=== PATIENT | female | born 1960 | race Caucasian/White ===

== ENCOUNTER 2018-07-13 00:54 | Emergency (ER) | payer OTHER ==
[2018-07-13 01:00] VITALS: BP 123/74; PULSE 104; TEMP 97.8; BMI 25.7
--- NOTE | 2018-07-13 01:00 | PDOC ---
History of Present Illness - General Chief Complaint: Nausea/Vomiting Stated Complaint: NAUSEA/VOMITING Time Seen by Provider: 07/13/18 00:56 - History of Present Illness Initial Comments: 07/13/18 01:10 This 57-year-old woman with a history of HLD/diverticular disease presents with a few hour history of nausea/vomiting. Patient states that she last ate at approximately 4 PM (crab salad) and did well until approximately 10:30 PM. At that time, she began to have nausea with subsequent vomiting (3 episodes). Emesis was yellowish liquid; denies blood/coffee grounds. After this, she felt weak and experienced rapid heartbeat (palpitations have subsequently resolved). She denies shortness of breath or chest pain. She has not had loose stools although she has mild abdominal cramping and feels she will have a bowel movement soon. Patient's granddaughter recently had acute illness with vomiting /diarrhea ; the patient had contact with granddaughter several days ago. Patient has no history of bowel obstruction or previous abdominal surgery. The patient has a history of diverticulitis and had been taking a medication for " inflammation" until several months ago, prescribed by Dr Feliz Abbott. She states that she is due for follow-up with "soon". Denies any other gastrointestinal issues Past History - Past Medical History Allergies/Adverse Reactions: Allergies Allergy/AdvReac Type Severity Reaction Status Date / Time No Known Allergies Allergy Unverified 07/13/18 00:55 Home Medications: Ambulatory Orders Aspirin [Aspirin EC] 81 mg PO DAILY 07/13/18 Fenofibrate Nanocrystallized [Fenofibrate] 160 mg PO DAILY 07/13/18 Ondansetron [Zofran Odt -] 4 mg SL TID PRN #12 od.tablet 07/13/18 Simvastatin 5 mg PO DAILY 07/13/18 Review of Systems - Review of Systems Able to Perform ROS?: Yes Comments:: 12 point review of systems is negative except for what is noted in the history of present illness *Physical Exam - Physical Exam Comments: GENERAL: Adult female, alert and oriented 3, in no acute distress HEAD: Normal with no signs of trauma. EYES: PERRLA, EOMI, sclera anicteric, conjunctiva clear. ENT: Ears normal, nares patent, oropharynx clear without exudates. Dry mucous membranes. NECK: Normal range of motion, supple without lymphadenopathy, JVD, or masses. LUNGS: Breath sounds equal, clear to auscultation bilaterally. No wheezes, and no crackles. HEART:Regular rate and rhythm, normal S1 and S2 without murmur, rub or gallop. ABDOMEN:.hypoactive bowel sounds No guarding,tenderness or rebound.No masses Mild distention. EXTREMITIES: Normal range of motion, no edema. No clubbing or cyanosis. No erythema, or tenderness. NEUROLOGICAL: Cranial nerves II through XII grossly intact. Normal speech. No focal neurological deficits. MUSCULOSKELETAL: Back non-tender to palpation, no CVA tenderness SKIN: Warm, Dry, normal turgor, no rashes or lesions noted. ED Treatment Course - LABORATORY CBC & Chemistry Diagram: 07/13/18 01:15 07/13/18 01:15 Medical Decision Making - Medical Decision Making This 57-year-old woman with a history of HLD/diverticulitis presents with nausea and vomiting for the last few hours. Exam notable for dry mucous membranes, and mildly distended, soft abdomen with hypoactive bowel sounds. There is no significant abdominal tenderness or masses on exam CBC/chemistry profile/lipase was evaluated. Patient received 2 L of normal saline IV as well as 4 mg Zofran IV. Laboratory evaluation notable for mild hypokalemia (3.1) and BUN of 23 with creatinine of 0.4 consistent with prerenal azotemia. Lipase was normal. CBC was essentially normal. Patient felt significantly better after IV hydration and IV Zofran. She received 20 mEq Twila Dur orally; she continued to feel comfortable without any recurrence of nausea. Patient is discharged with instructions to continue oral hydration with clear liquids as tolerated. She should advance to solid foods very cautiously. Zofran ODT 4 mg to be used up to 3 times a day (#12) prescription was sent to her pharmacy. She should return to the emergency room if she has recurrent severe vomiting or develops abdominal pain/fever. Follow-up with her general medical doctor and with her music pastor should be planned for the next week *DC/Admit/Observation/Transfer Diagnosis at time of Disposition: Gastroenteritis - Discharge Dispostion Disposition: HOME Condition at time of disposition: Stable - Prescriptions Prescriptions: Ondansetron [Zofran Odt -] 4 mg SL TID PRN #12 od.tablet PRN Reason: Nausea - Referrals Referrals: Yahaira Akers MD [Primary Care Provider] - Feliz Abbott MD [Staff Physician] - - Patient Instructions Printed Discharge Instructions: Viral Gastroenteritis Additional Instructions: rest; clear liquids Advance diet cautiously Zofran ODT 4 mg up to 3 times a day as needed for nausea Return to ER if you have persistent vomiting or develop severe pain/fever Follow-up with your primary care doctor within the next 5 days Also follow-up with Dr. Abbott within the next 1-2 weeks - Post Discharge Activity
[2018-07-13] MEDS ORDERED: ONDANSETRON 4 MG/2 ML VIAL IVPUSH ONE (01:09)
[2018-07-13] MEDS ORDERED: SODIUM CHLORIDE 1,000 ML IV STA (01:09)
[2018-07-13] MEDS ORDERED: ONDANSETRON 4 MG/2 ML VIAL ONE (01:15)
[2018-07-13 01:51] LABS: BASO % 0.1 % (0-2.0); EOS % 1.7 % (0-4.5); HEMATOCRIT 40.4 % (32.4-45.2); HEMOGLOBIN 14.3 GM/dL (10.7-15.3); LYMPH % 5.7 % (8-40); MCH 34.4 pg (25.7-33.7); MCHC 35.3 g/dl (32.0-36.0); MEAN CELL VOLUME 97.2 fl (80-96); MEAN PLT VOLUME 7.8 fl (7.5-11.1); MONO % 3.8 % (3.8-10.2); NEUT % 88.7 % (42.8-82.8); PLATELET COUNT 293 K/MM3 (134-434); RBC 4.16 M/mm3 (3.60-5.2); WHITE BLOOD COUNT 6.5 K/mm3 (4.0-10.0)
[2018-07-13 02:26] LABS: ALBUMIN 3.9 g/dl (3.4-5.0); ALK PHOS 80 U/L (45-117); ANION GAP 10 MMOL/L (8-16); BILIRUBIN,TOTAL 0.4 mg/dL (0.2-1); BLOOD UREA NITROGEN 23 mg/dL (7-18); CALCIUM 8.6 mg/dL (8.5-10.1); CHLORIDE 104 mmol/L (98-107); CO2 26 mmol/L (21-32); CREATININE 0.4 mg/dL (0.55-1.3); GLUCOSE,RANDOM 121 mg/dL (74-106); LIPASE 303 U/L (73-393); POTASSIUM 3.1 mmol/L (3.5-5.1); SGOT/AST 18 U/L (15-37); SGPT/ALT 21 U/L (13-61); SODIUM 139 mmol/L (136-145); TOT PROT 6.8 g/dl (6.4-8.2)
[2018-07-13] MEDS ORDERED: POTASSIUM CHLORIDE TABS 20 MEQ TABLET.ER (FP) PO ONE ×2 (02:43→02:47)
== END 2018-07-13 03:01 | disposition home or self-care (01) ==
LOC: FER 00:54
PROC: 3E033GC Introduction of Other Therapeutic Substance into Peripheral Vein, Percutaneous Approach (ICD-10-PCS; principal; 2018-07-13)
PROC: 3E0337Z Introduction of Electrolytic and Water Balance Substance into Peripheral Vein, Percutaneous Approach (ICD-10-PCS; 2018-07-13)
DX: K52.9 Noninfective gastroenteritis and colitis, unspecified (principal); E78.5 Hyperlipidemia, unspecified
CPT/HCPCS: 36415; 80053; 83690; 85025; 96361; 96374; 99283-25; J7030

== ENCOUNTER 2020-12-10 20:30 | Inpatient (IN) | payer OTHER ==
[2020-12-10 20:43] VITALS: BMI 23.1
[2020-12-10] MEDS ORDERED: SODIUM CHLORIDE 1,000 ML IV ONE (20:47)
[2020-12-10] MEDS ORDERED: morphine CARPU-JECT 4 MG/1 ML DISP.SYRIN IVPUSH ONE (21:00)
[2020-12-10] MEDS ORDERED: morphine SULFATE 4 MG/ML VIAL ONE (21:01)
[2020-12-10 21:06] LABS: MONO % 6.3 % (3.8-10.2); RBC 3.98 M/mm3 (3.60-5.2)
[2020-12-10 21:08] LABS: BASO % 2.2 % (0-2.0); EOS % 0.1 % (0-4.5); HEMATOCRIT 38.7 % (32.4-45.2); LYMPH % 3.5 % (8-40); MCH 32.7 pg (25.7-33.7); MCHC 33.6 g/dl (32.0-36.0); MEAN CELL VOLUME 97.2 fl (80-96); MEAN PLT VOLUME 7.5 fl (7.5-11.1); NEUT % 87.9 % (42.8-82.8); PLATELET COUNT 303 10^3/uL (134-434); RDW 13.4 % (11.6-15.6); WHITE BLOOD COUNT 13.6 K/mm3 (4.0-10.8)
[2020-12-10 21:16] LABS: ALBUMIN 4.2 g/dl (3.4-5.0); ALK PHOS 70 U/L (45-117); ANION GAP 8 MMOL/L (8-16); BILIRUBIN,TOTAL 0.8 mg/dl (0.2-1); CHLORIDE 102 mmol/L (98-107); CO2 25 mmol/L (21-32); CREATININE 0.4 mg/dl (0.55-1.3); GLUCOSE,RANDOM 146 mg/dl (74-106); SGOT/AST 17 U/L (15-37); SGPT/ALT 16 U/L (13-61); SODIUM 135 mmol/L (136-145)
[2020-12-10 22:05] LABS: LIPASE 77 U/L (73-393)
[2020-12-10] MEDS ORDERED: PIPERACILLIN/TAZOB 4.5 GM 4.5 GM in DEXTROSE 5%-WATER 100 ML IVPB ONE (23:40)
[2020-12-10] MEDS ORDERED: PIPERACILLIN/TAZOBACTAM 4.5 GM VIAL IVPB ONE (23:52)
[2020-12-10] MEDS: SODIUM CHLORIDE 1,000 ML IV SCH (23:53)
[2020-12-11] MEDS ORDERED: morphine SULFATE 4 MG/ML VIAL ONE (00:26)
[2020-12-11] MEDS ORDERED: morphine CARPU-JECT 4 MG/1 ML DISP.SYRIN IVPUSH ONE (00:30)
[2020-12-11] MEDS ORDERED: ONDANSETRON 4 MG/2 ML VIAL IVPUSH PRN (01:12)
[2020-12-11] MEDS: KCL 10 MEQ IVPB 10 MEQ/100 ML INFUS.BAG IVPB SCH ×3 (02:00→05:00)
[2020-12-11] MEDS: DEXTROSE 5%-NORMAL SALINE 1,000 ML IV SCH ×2 (02:07→13:51)
[2020-12-11] MEDS: MORPHINE SULFATE 2 MG/ML VIAL IVPUSH PRN ×4 (02:51→22:13)
[2020-12-11] MEDS: ACETAMINOPHEN 1000 MG/100 ML VIAL (NON FORMULARY) IVPB PRN ×3 (06:14→18:52)
[2020-12-11] MEDS ORDERED: CEFTRIAXONE 1 GM in DEXTROSE 5%-WATER - 50 ML IVPB SCH (13:15)
[2020-12-11] MEDS ORDERED: cefTRIAXone SODIUM 1 GM VIAL ONE (13:48)
[2020-12-11] MEDS ORDERED: DEXTROSE 5%-WATER - 50 ML IVPB ONE ×2 (13:48→18:08)
[2020-12-11] MEDS ORDERED: PT OWN MED DRAWER 7, Y5N ONE ×2 (17:27→21:00)
[2020-12-11] MEDS ORDERED: PIPERACILLIN/TAZOB 3.375 GM 3.375 GM in DEXTROSE 5%-WATER - 50 ML IVPB SCH (18:00)
[2020-12-11] MEDS ORDERED: PIPERACILLIN/TAZOBACTAM 3.375 GM VIAL IVPB ONE (18:08)
[2020-12-11] MEDS: PIPERACILLIN/TAZOB 3.375 GM 3.375 GM in DEXTROSE 5%-WATER - 50 ML IVPB SCH (18:11)
[2020-12-11 18:17] LABS: BLOOD UREA NITROGEN 7.5 mg/dL (7-18); CALCIUM 8.6 mg/dL (8.5-10.1); MAGNESIUM 2.4 mg/dL (1.8-2.4)
[2020-12-11 18:18] LABS: INR 1.03 (0.83-1.09); PROTHROMBIN TIME (PATIENT) 12.4 SEC (9.7-13.0)
[2020-12-11 18:20] LABS: ACTIVATED PTT 26.8 SECONDS (25.2-36.5); CREATININE 0.3 mg/dL (0.55-1.3)
[2020-12-11 18:22] LABS: BILIRUBIN,TOTAL 0.4 mg/dL (0.2-1); TOT PROT 6.1 g/dl (6.4-8.2)
[2020-12-11 18:37] LABS: ALBUMIN 3.2 g/dl (3.4-5.0)
[2020-12-11] MEDS: HEPARIN NA (PORCINE) 5,000 UNITS/ML 1ML VIAL SQ SCH (21:36)
[2020-12-12] MEDS ORDERED: DEXTROSE 5%-WATER - 50 ML IVPB ONE ×3 (02:46→17:03)
[2020-12-12] MEDS ORDERED: PT OWN MED DRAWER 7, Y5N ONE ×5 (02:46→21:31)
[2020-12-12] MEDS ORDERED: PIPERACILLIN/TAZOBACTAM 3.375 GM VIAL IVPB ONE ×3 (02:46→17:03)
[2020-12-12] MEDS: MORPHINE SULFATE 2 MG/ML VIAL IVPUSH PRN ×3 (03:02→22:14)
[2020-12-12] MEDS: PIPERACILLIN/TAZOB 3.375 GM 3.375 GM in DEXTROSE 5%-WATER - 50 ML IVPB SCH ×3 (03:04→17:31)
[2020-12-12] MEDS: DEXTROSE 5%-NORMAL SALINE 1,000 ML IV SCH ×2 (03:05→15:43)
[2020-12-12] MEDS: ACETAMINOPHEN 1000 MG/100 ML VIAL (NON FORMULARY) IVPB PRN ×3 (04:06→17:38)
[2020-12-12] MEDS: SODIUM CHLORIDE 1,000 ML IV SCH (05:33)
[2020-12-12] MEDS: PANTOPRAZOLE SODIUM 40 MG VIAL IVPUSH SCH (09:28)
[2020-12-12] MEDS: NICOTINE 14 MG/24 HOURS TOPICAL PATCH TD SCH ×2 (09:28→10:27)
[2020-12-12] MEDS: HEPARIN NA (PORCINE) 5,000 UNITS/ML 1ML VIAL SQ SCH ×2 (09:28→22:11)
[2020-12-12 09:54] LABS: BASO % 0.2 % (0-2.0); EOS % 1.1 % (0-4.5); HEMATOCRIT 35.2 % (32.4-45.2); HEMOGLOBIN 11.7 GM/dL (10.7-15.3); LYMPH % 13.1 % (8-40); MCH 32.6 pg (25.7-33.7); MCHC 33.1 g/dl (32.0-36.0); MEAN CELL VOLUME 98.4 fl (80-96); MEAN PLT VOLUME 7.8 fl (7.5-11.1); MONO % 9.5 % (3.8-10.2); NEUT % 76.1 % (42.8-82.8); PLATELET COUNT 270 10^3/uL (134-434); RBC 3.58 M/mm3 (3.60-5.2); RDW 14.4 % (11.6-15.6); WHITE BLOOD COUNT 5.4 K/mm3 (4.0-10.0)
[2020-12-12] MEDS ORDERED: PANTOPRAZOLE SODIUM 40 MG in SODIUM CHLORIDE 100 ML IVPB SCH (10:00)
[2020-12-12 10:17] LABS: BLOOD UREA NITROGEN 8.5 mg/dL (7-18); CALCIUM 8.4 mg/dL (8.5-10.1); MAGNESIUM 2.4 mg/dL (1.8-2.4)
[2020-12-12 10:20] LABS: CREATININE 0.3 mg/dL (0.55-1.3)
[2020-12-12 10:22] LABS: BILIRUBIN,TOTAL 0.4 mg/dL (0.2-1); TOT PROT 5.8 g/dl (6.4-8.2)
[2020-12-12 10:46] LABS: INR 0.97 (0.83-1.09); PROTHROMBIN TIME (PATIENT) 11.9 SEC (9.7-13.0)
[2020-12-13] MEDS ORDERED: PT OWN MED DRAWER 7, Y5N ONE ×3 (03:04→21:14)
[2020-12-13] MEDS ORDERED: DEXTROSE 5%-WATER - 50 ML IVPB ONE ×4 (03:04→17:06)
[2020-12-13] MEDS ORDERED: PIPERACILLIN/TAZOBACTAM 3.375 GM VIAL IVPB ONE ×4 (03:04→17:06)
[2020-12-13] MEDS: PIPERACILLIN/TAZOB 3.375 GM 3.375 GM in DEXTROSE 5%-WATER - 50 ML IVPB SCH ×3 (03:20→17:44)
[2020-12-13] MEDS: DEXTROSE 5%-NORMAL SALINE 1,000 ML IV SCH (03:53)
[2020-12-13] MEDS: MORPHINE SULFATE 2 MG/ML VIAL IVPUSH PRN ×2 (05:49→21:33)
[2020-12-13 09:24] LABS: BASO % 0.3 % (0-2.0); EOS % 1.6 % (0-4.5); HEMATOCRIT 33.3 % (32.4-45.2); LYMPH % 13.7 % (8-40); MCH 32.5 pg (25.7-33.7); MCHC 33.1 g/dl (32.0-36.0); MEAN CELL VOLUME 98.2 fl (80-96); MEAN PLT VOLUME 7.8 fl (7.5-11.1); MONO % 9.1 % (3.8-10.2); NEUT % 75.3 % (42.8-82.8); PLATELET COUNT 274 10^3/uL (134-434); RBC 3.39 M/mm3 (3.60-5.2); RDW 14.2 % (11.6-15.6); WHITE BLOOD COUNT 4.6 K/mm3 (4.0-10.0)
[2020-12-13] MEDS: HEPARIN NA (PORCINE) 5,000 UNITS/ML 1ML VIAL SQ SCH ×2 (09:27→21:16)
[2020-12-13] MEDS: PANTOPRAZOLE SODIUM 40 MG VIAL IVPUSH SCH (09:28)
[2020-12-13] MEDS: NICOTINE 14 MG/24 HOURS TOPICAL PATCH TD SCH (09:28)
[2020-12-13 10:00] LABS: ALBUMIN 2.7 g/dl (3.4-5.0); CALCIUM 8.4 mg/dL (8.5-10.1)
[2020-12-13 10:01] LABS: BLOOD UREA NITROGEN 5.2 mg/dL (7-18)
[2020-12-13 10:04] LABS: MAGNESIUM 2.1 mg/dL (1.8-2.4)
[2020-12-13 10:05] LABS: BILIRUBIN,TOTAL 0.5 mg/dL (0.2-1)
[2020-12-13 10:07] LABS: CREATININE 0.3 mg/dL (0.55-1.3); TOT PROT 5.4 g/dl (6.4-8.2)
[2020-12-13] MEDS: ACETAMINOPHEN 1000 MG/100 ML VIAL (NON FORMULARY) IVPB PRN (10:28)
[2020-12-13] MEDS: D5-1/2NS+20 MEQ KCL - 20 MEQ/1,000 ML INFUS.BAG IV SCH (13:58)
[2020-12-14] MEDS ORDERED: PIPERACILLIN/TAZOBACTAM 3.375 GM VIAL IVPB ONE ×4 (01:19→16:32)
[2020-12-14] MEDS ORDERED: DEXTROSE 5%-WATER - 50 ML IVPB ONE ×4 (01:19→16:33)
[2020-12-14] MEDS ORDERED: PT OWN MED DRAWER 7, Y5N ONE ×2 (01:23→07:56)
[2020-12-14] MEDS: PIPERACILLIN/TAZOB 3.375 GM 3.375 GM in DEXTROSE 5%-WATER - 50 ML IVPB SCH ×3 (01:28→18:15)
[2020-12-14] MEDS: D5-1/2NS+20 MEQ KCL - 20 MEQ/1,000 ML INFUS.BAG IV SCH ×2 (02:28→14:28)
[2020-12-14 09:06] LABS: BASO % 0.3 % (0-2.0); EOS % 1.3 % (0-4.5); HEMATOCRIT 33.3 % (32.4-45.2); HEMOGLOBIN 11.2 GM/dL (10.7-15.3); LYMPH % 12.9 % (8-40); MCH 32.6 pg (25.7-33.7); MCHC 33.7 g/dl (32.0-36.0); MEAN CELL VOLUME 96.6 fl (80-96); MEAN PLT VOLUME 7.2 fl (7.5-11.1); MONO % 12.8 % (3.8-10.2); NEUT % 72.7 % (42.8-82.8); PLATELET COUNT 277 10^3/uL (134-434); RBC 3.45 M/mm3 (3.60-5.2); RDW 13.8 % (11.6-15.6); WHITE BLOOD COUNT 5.2 K/mm3 (4.0-10.0)
[2020-12-14] MEDS: HEPARIN NA (PORCINE) 5,000 UNITS/ML 1ML VIAL SQ SCH ×2 (09:43→21:40)
[2020-12-14] MEDS: PANTOPRAZOLE SODIUM 40 MG VIAL IVPUSH SCH (09:43)
[2020-12-14] MEDS ORDERED: POTASSIUM CHLORIDE ORAL LIQUID 20 MEQ/15 ML NGT ONE (09:44)
[2020-12-14 09:45] LABS: BLOOD UREA NITROGEN 3.1 mg/dL (7-18)
[2020-12-14 09:48] LABS: CREATININE 0.2 mg/dL (0.55-1.3)
[2020-12-14] MEDS: ACETAMINOPHEN 1000 MG/100 ML VIAL (NON FORMULARY) IVPB PRN (09:48)
[2020-12-14 09:50] LABS: TOT PROT 5.5 g/dl (6.4-8.2)
[2020-12-14] MEDS: NICOTINE 14 MG/24 HOURS TOPICAL PATCH TD SCH (09:50)
[2020-12-14 10:00] LABS: ALBUMIN 2.7 g/dl (3.4-5.0); MAGNESIUM 1.9 mg/dL (1.8-2.4)
[2020-12-14 10:01] LABS: CALCIUM 8.7 mg/dL (8.5-10.1)
[2020-12-14 10:09] LABS: BILIRUBIN,TOTAL 0.2 mg/dL (0.2-1)
[2020-12-14] MEDS: methylPREDNISolone NA SUCC 40 MG/1 ML VIAL IVPUSH SCH (14:29)
[2020-12-15] MEDS ORDERED: DEXTROSE 5%-WATER - 50 ML IVPB ONE ×2 (01:20→10:18)
[2020-12-15] MEDS ORDERED: PIPERACILLIN/TAZOBACTAM 3.375 GM VIAL IVPB ONE ×2 (01:20→10:18)
[2020-12-15] MEDS: PIPERACILLIN/TAZOB 3.375 GM 3.375 GM in DEXTROSE 5%-WATER - 50 ML IVPB SCH ×2 (01:27→10:29)
[2020-12-15] MEDS: D5-1/2NS+20 MEQ KCL - 20 MEQ/1,000 ML INFUS.BAG IV SCH (03:57)
[2020-12-15 08:45] LABS: BASO % 0.2 % (0-2.0); HEMATOCRIT 37.4 % (32.4-45.2); HEMOGLOBIN 12.6 GM/dL (10.7-15.3); LYMPH % 11.5 % (8-40); MCH 32.5 pg (25.7-33.7); MCHC 33.6 g/dl (32.0-36.0); MEAN CELL VOLUME 96.6 fl (80-96); MEAN PLT VOLUME 7.5 fl (7.5-11.1); MONO % 9.4 % (3.8-10.2); NEUT % 78.9 % (42.8-82.8); PLATELET COUNT 348 10^3/uL (134-434); RBC 3.87 M/mm3 (3.60-5.2); RDW 14.1 % (11.6-15.6); WHITE BLOOD COUNT 5.2 K/mm3 (4.0-10.0)
[2020-12-15 09:37] LABS: CALCIUM 9.3 mg/dL (8.5-10.1)
[2020-12-15 09:38] LABS: BLOOD UREA NITROGEN 5.2 mg/dL (7-18); MAGNESIUM 2.1 mg/dL (1.8-2.4)
[2020-12-15 09:40] LABS: CREATININE 0.4 mg/dL (0.55-1.3)
[2020-12-15 09:43] LABS: BILIRUBIN,TOTAL 0.3 mg/dL (0.2-1); TOT PROT 6.7 g/dl (6.4-8.2)
[2020-12-15 09:54] LABS: ALBUMIN 3.4 g/dl (3.4-5.0)
[2020-12-15 09:58] LABS: ANISOCYTOSIS 1+; MACROCYTOSIS 1+; PLATELET ESTIMATE NORMAL
[2020-12-15] MEDS: HEPARIN NA (PORCINE) 5,000 UNITS/ML 1ML VIAL SQ SCH ×2 (10:31→21:16)
[2020-12-15] MEDS: NICOTINE 14 MG/24 HOURS TOPICAL PATCH TD SCH (10:31)
[2020-12-15] MEDS: methylPREDNISolone NA SUCC 40 MG/1 ML VIAL IVPUSH SCH (10:31)
[2020-12-15] MEDS: PANTOPRAZOLE SODIUM 40 MG VIAL IVPUSH SCH (10:31)
[2020-12-15] MEDS: metroNIDAZOLE 250 MG TABLET PO SCH (21:16)
[2020-12-16] MEDS: metroNIDAZOLE 250 MG TABLET PO SCH (05:55)
[2020-12-16 08:34] LABS: BASO % 0.3 % (0-2.0); EOS % 0.1 % (0-4.5); HEMATOCRIT 32.9 % (32.4-45.2); HEMOGLOBIN 11.1 GM/dL (10.7-15.3); LYMPH % 23.5 % (8-40); MCH 32.6 pg (25.7-33.7); MCHC 33.6 g/dl (32.0-36.0); MEAN PLT VOLUME 7.4 fl (7.5-11.1); MONO % 13.6 % (3.8-10.2); NEUT % 62.5 % (42.8-82.8); PLATELET COUNT 333 10^3/uL (134-434); RDW 14.3 % (11.6-15.6); WHITE BLOOD COUNT 7.1 K/mm3 (4.0-10.0)
[2020-12-16] MEDS ORDERED: POTASSIUM CHLORIDE TABS 20 MEQ TABLET.ER (FP) PO ONE (09:00)
[2020-12-16 09:03] LABS: CALCIUM 9.2 mg/dL (8.5-10.1)
[2020-12-16 09:04] LABS: BLOOD UREA NITROGEN 11.1 mg/dL (7-18)
[2020-12-16 09:05] LABS: BILIRUBIN,TOTAL 0.4 mg/dL (0.2-1)
[2020-12-16 09:07] LABS: CREATININE 0.4 mg/dL (0.55-1.3)
[2020-12-16 09:09] LABS: TOT PROT 5.7 g/dl (6.4-8.2)
[2020-12-16] MEDS ORDERED: CEFTRIAXONE 1 GM in DEXTROSE 5%-WATER - 50 ML IVPB SCH (10:00)
[2020-12-16] MEDS ORDERED: predniSONE 20 MG TABLET (UD) PO SCH (10:00)
[2020-12-16 10:23] LABS: ANISOCYTOSIS 1+; MACROCYTOSIS 1+; PLATELET ESTIMATE NORMAL
[2020-12-16] MEDS: PANTOPRAZOLE SODIUM 40 MG VIAL IVPUSH SCH (10:24)
[2020-12-16] MEDS: NICOTINE 14 MG/24 HOURS TOPICAL PATCH TD SCH (10:24)
[2020-12-16] MEDS: HEPARIN NA (PORCINE) 5,000 UNITS/ML 1ML VIAL SQ SCH (10:24)
[2020-12-16 14:48] VITALS: BP 122/71; PULSE 59; TEMP 98.2
== END 2020-12-16 16:05 | disposition home or self-care (01) | DRG 244 ==
LOC: FER 20:30 → SUPCPDRO 20:30 → FM/S 23:58 → J6S 12-11 13:43
PROVIDERS: ADMIT Internal Medicine; ATTEND Nurse Practitioner Family
PROC: 0D9670Z Drainage of Stomach with Drainage Device, Via Natural or Artificial Opening (ICD-10-PCS; principal; 2020-12-11)
DX: K57.92 Diverticulitis of intestine, part unspecified, without perforation or abscess without bleeding (principal); K56.609 Unspecified intestinal obstruction, unspecified as to partial versus complete obstruction; R11.2 Nausea with vomiting, unspecified; E78.5 Hyperlipidemia, unspecified; K50.90 Crohn's disease, unspecified, without complications; D72.829 Elevated white blood cell count, unspecified; K52.9 Noninfective gastroenteritis and colitis, unspecified; F17.210 Nicotine dependence, cigarettes, uncomplicated
CPT/HCPCS: 36415; 71045-TC-FY; 74019-TC-FY; 74021-TC-FY; 74177-TC; 80053; 82550; 83516; 83605; 83690; 83735; 83993; 84132; 84484; 85025; 85610; 85730; 86140; 86255; 86671; 86850; 86900; 86901; 87040; 87045; 87046; 87324; 87449; 93005; 99285-25; C9803; J0131; J1644; Q9967; U0003; U0005

== ENCOUNTER 2021-09-06 20:00 | Emergency (ER) | payer OTHER ==
[2021-09-06 20:21] VITALS: BP 129/72; PULSE 82; TEMP 98.1; BMI 21.9
[2021-09-06] MEDS ORDERED: diazePAM 2 MG TABLET PO ONE (22:16)
[2021-09-06] MEDS ORDERED: IBUPROFEN 600 MG TABLET (FP) PO ONE ×2 (22:16→22:18)
[2021-09-06] MEDS ORDERED: diazePAM 2 MG TABLET ONE (22:18)
== END 2021-09-06 23:05 | disposition home or self-care (01) ==
LOC: JERFT 20:00
DX: M54.6 Pain in thoracic spine (principal); F41.9 Anxiety disorder, unspecified
CPT/HCPCS: 71046-TC-FY; 93005; 93010; 99284-25

== ENCOUNTER 2022-01-21 09:20 | Emergency (ER) | payer OTHER ==
[2022-01-21 09:30] VITALS: BP 154/85; PULSE 65; RESP 18; TEMP 98.1; BMI 22.6
[2022-01-21 09:45] LABS: EPITHELIAL CELLS MODERATE /hpf
[2022-01-21 10:14] LABS: HEMATOCRIT 39.2 % (32.4-45.2); HEMOGLOBIN 13.8 G/dL (10.7-15.3); MCH 34.4 pg (25.7-33.7); MCHC 35.3 g/dl (32.0-36.0); MEAN CELL VOLUME 97.4 fl (80-96); MEAN PLT VOLUME 7.6 fl (7.5-11.1); PLATELET COUNT 276.2 10^3/uL (134-434); RBC 4.02 10^6/uL (3.60-5.2); RDW 14.1 % (11.6-15.6); WHITE BLOOD COUNT 6.6 10^3/uL (4.0-10.8)
[2022-01-21 10:16] LABS: PLATELET ESTIMATE ADEQUATE
[2022-01-21 10:20] LABS: ALBUMIN 4.1 g/dl (3.4-5.0); BILIRUBIN,TOTAL 0.7 mg/dl (0.2-1); CALCIUM 8.9 mg/dl (8.5-10); CREATININE 0.4 mg/dl (0.55-1.3); TOT PROT 6.4 g/dl (6.4-8.2)
== END 2022-01-21 12:30 | disposition home or self-care (01) ==
LOC: FER 09:20
DX: M54.50 Low back pain, unspecified (principal); R53.1 Weakness; R51.9 Headache, unspecified
CPT/HCPCS: 0241U-QW; 36415; 71046-TC-FY; 80053; 81003; 81015; 82550; 83735; 84443; 84484; 85025; 93005; 99285-25

== ENCOUNTER 2022-02-15 04:46 | Day surgery (SDC) | payer OTHER ==
[2022-02-10 10:26] VITALS: BMI 22.3
[2022-02-15] MEDS ORDERED: BUPIVACAINE HCL/PF 0.75% 10 ML VIAL ONE ×2 (07:12→10:01)
[2022-02-15] MEDS ORDERED: LIDOCAINE HCL/PF 1% SDV 5ML VIAL ONE (07:12)
[2022-02-15 09:30] VITALS: RESP 18
[2022-02-15] MEDS ORDERED: BUPIVACAINE HCL/PF 0.75% 10 ML VIAL NR ONE (12:19)
[2022-02-15] MEDS ORDERED: LIDOCAINE 1% P/F 10 MG/ML VIAL INF ONE (12:20)
[2022-02-15 13:18] VITALS: BP 131/69; PULSE 61; TEMP 97.3
== END 2022-02-15 13:18 | disposition home or self-care (01) ==
LOC: JASU-SURG 04:46
PROVIDERS: ATTEND Pain Medicine Pain Medicine
PROC: BR16YZZ Fluoroscopy of Lumbar Facet Joint(s) using Other Contrast (ICD-10-PCS; 2022-02-15)
PROC: 3E0T3BZ Introduction of Anesthetic Agent into Peripheral Nerves and Plexi, Percutaneous Approach (ICD-10-PCS; principal; 2022-02-15 11:00)
DX: M47.896 Other spondylosis, lumbar region (principal)
CPT/HCPCS: 76000-TC-FY

== ENCOUNTER 2022-07-01 18:27 | Emergency (ER) | payer OTHER ==
[2022-07-01 19:02] VITALS: BP 160/76; PULSE 57; RESP 16; TEMP 98.5; BMI 21.2
[2022-07-01] MEDS ORDERED: ASPIRIN 81 MG CHEWABLE TABLETS PO ONE (19:47)
[2022-07-01] MEDS ORDERED: ASPIRIN 81 MG CHEWABLE TABLETS ONE ×2 (19:49→19:52)
[2022-07-01 20:09] LABS: HEMATOCRIT 40.5 % (32.4-45.2); HEMOGLOBIN 13.7 G/dL (10.7-15.3); MCH 33.7 pg (25.7-33.7); MCHC 33.7 g/dl (32.0-36.0); MEAN CELL VOLUME 99.9 fl (80-96); MEAN PLT VOLUME 7.8 fl (7.5-11.1); PLATELET COUNT 229.5 10^3/uL (134-434); RBC 4.05 10^6/uL (3.60-5.2); RDW 13.5 % (11.6-15.6); WHITE BLOOD COUNT 5.6 10^3/uL (4.0-10.8)
[2022-07-01 20:13] LABS: INR 1.01 (0.83-1.09); PROTHROMBIN TIME (PATIENT) 11.6 SEC (9.7-13.0)
[2022-07-01 20:21] LABS: ALBUMIN 4.4 g/dl (3.4-5.0); BILIRUBIN,TOTAL 0.6 mg/dl (0.2-1); CALCIUM 8.9 mg/dl (8.5-10); CREATININE 0.5 mg/dl (0.55-1.3)
[2022-07-01 20:38] LABS: PLATELET ESTIMATE ADEQUATE
[2022-07-01] MEDS ORDERED: DEXAMETHASONE 4 MG TABLET (FP) PO ONE (20:46)
[2022-07-01] MEDS ORDERED: AZITHROMYCIN 500 MG TABLET PO ONE (20:46)
[2022-07-01] MEDS ORDERED: DEXAMETHASONE 4 MG TABLET (FP) ONE (20:49)
[2022-07-01] MEDS ORDERED: AZITHROMYCIN 250 MG TABLET ONE (20:49)
== END 2022-07-01 20:52 | disposition home or self-care (01) ==
LOC: FER 18:27
DX: R42 Dizziness and giddiness (principal)
CPT/HCPCS: 36415; 80053; 84484; 85025; 85610; 93005; 99284-25

== ENCOUNTER 2022-12-20 04:17 | Day surgery (SDC) | payer OTHER ==
[2022-12-19 10:41] VITALS: BMI 22.6
[~2022-12-20 04:17] MED LIST: BUPIVACAINE HCL/PF 0.75% 10 ML VIAL NR ONE; LIDOCAINE HCL 1% PRESERVATIVE FREE - 30ML VIAL IJ ONE
[2022-12-20 07:10] VITALS: RESP 20
[2022-12-20] MEDS ORDERED: BUPIVACAINE HCL/PF 0.75% 10 ML VIAL ONE (07:18)
[2022-12-20] MEDS ORDERED: LIDOCAINE HCL/PF 1% SDV 5ML VIAL ONE (07:19)
[2022-12-20] MEDS ORDERED: BUPIVACAINE HCL/PF 0.75% 10 ML VIAL NR ONE ×2 (08:47)
[2022-12-20] MEDS ORDERED: LIDOCAINE HCL 1% PRESERVATIVE FREE - 30ML VIAL IJ ONE ×2 (08:47)
[2022-12-20 09:31] VITALS: BP 140/78; PULSE 70; TEMP 8
[2022-12-20] MEDS ORDERED: ACETAMINOPHEN 500 MG TABLET (FP) PO PRN (19:46)
== END 2022-12-20 09:31 | disposition home or self-care (01) ==
LOC: JASU-SURG 04:17
PROVIDERS: ATTEND Pain Medicine Pain Medicine
PROC: 3E0T33Z Introduction of Anti-inflammatory into Peripheral Nerves and Plexi, Percutaneous Approach (ICD-10-PCS; 2022-12-20)
PROC: 3E0T3BZ Introduction of Anesthetic Agent into Peripheral Nerves and Plexi, Percutaneous Approach (ICD-10-PCS; principal; 2022-12-20 08:45)
DX: M47.816 Spondylosis without myelopathy or radiculopathy, lumbar region (principal)
CPT/HCPCS: 76000-TC-FY

== ENCOUNTER 2023-01-17 05:03 | Day surgery (SDC) | payer OTHER ==
[2023-01-11 13:33] VITALS: BMI 22.6
[~2023-01-17 05:03] MED LIST changes: +DEXAMETHASONE SOD PHOSPHATE 10 MG/1 ML VIAL IM ONE; +LIDOCAINE HCL/PF 2% SDV 5ML VIAL INF ONE
[2023-01-17] MEDS ORDERED: LIDOCAINE HCL/PF 1% SDV 5ML VIAL ONE (07:23)
[2023-01-17] MEDS ORDERED: BUPIVACAINE HCL/PF 0.75% 10 ML VIAL ONE (07:23)
[2023-01-17] MEDS ORDERED: LIDOCAINE HCL/PF 2% SDV 5ML VIAL ONE (07:50)
[2023-01-17] MEDS ORDERED: ACETAMINOPHEN 500 MG TABLET (FP) PO PRN (08:04)
[2023-01-17 09:25] VITALS: RESP 18
[2023-01-17] MEDS ORDERED: DEXAMETHASONE SOD PHOSPHATE 10 MG/1 ML VIAL ONE (10:44)
[2023-01-17] MEDS ORDERED: LIDOCAINE HCL 1% PRESERVATIVE FREE - 30ML VIAL IJ ONE (11:06)
[2023-01-17] MEDS ORDERED: LIDOCAINE HCL/PF 2% SDV 5ML VIAL INF ONE (11:20)
[2023-01-17] MEDS ORDERED: BUPIVACAINE HCL/PF 0.75% 10 ML VIAL NR ONE (11:29)
[2023-01-17] MEDS ORDERED: DEXAMETHASONE SOD PHOSPHATE 10 MG/1 ML VIAL IM ONE (11:29)
[2023-01-17 12:38] VITALS: BP 141/76; PULSE 58; TEMP 97.8
== END 2023-01-17 12:20 | disposition home or self-care (01) ==
LOC: JASU-SURG 05:03
PROVIDERS: ATTEND Pain Medicine Pain Medicine
PROC: 015B3ZZ Destruction of Lumbar Nerve, Percutaneous Approach (ICD-10-PCS; principal; 2023-01-17 11:00)
DX: M47.816 Spondylosis without myelopathy or radiculopathy, lumbar region (principal)
CPT/HCPCS: 76000-TC-FY; J1100

== ENCOUNTER 2023-04-04 04:24 | Day surgery (SDC) | payer OTHER ==
[2023-04-03 09:15] VITALS: BMI 22.3
[2023-04-04] MEDS ORDERED: DEXAMETHASONE SOD PHOSPHATE 10 MG/1 ML VIAL ONE (07:15)
[2023-04-04] MEDS ORDERED: LIDOCAINE HCL/PF 1% SDV 5ML VIAL ONE (07:15)
[2023-04-04] MEDS ORDERED: TRIAMCINOLONE ACET 40MG/1ML VIAL ONE (09:18)
[2023-04-04] MEDS ORDERED: LIDOCAINE HCL 1%, 10 MG/ML (50 mL VIAL) INF ONE ×2 (09:32→09:35)
[2023-04-04] MEDS ORDERED: TRIAMCINOLONE ACET 40MG/1ML VIAL IJ ONE ×2 (09:33→09:37)
[2023-04-04] MEDS ORDERED: IOHEXOL 180 MG/1 ML ML IJ ONE ×2 (09:33→09:36)
[2023-04-04] MEDS ORDERED: BUPIVACAINE HCL/PF 0.5% (5 MG/ML) 30 ML VIAL IJ ONE ×2 (09:33→09:37)
[2023-04-04 10:18] VITALS: BP 155/74; PULSE 66; RESP 20; TEMP 98
[2023-04-04] MEDS ORDERED: ACETAMINOPHEN 500 MG TABLET (FP) PO PRN (15:36)
== END 2023-04-04 10:19 | disposition home or self-care (01) ==
LOC: JASU-SURG 04:24
PROVIDERS: ATTEND Pain Medicine Pain Medicine
PROC: 3E0U3GC Introduction of Other Therapeutic Substance into Joints, Percutaneous Approach (ICD-10-PCS; principal; 2023-04-04 09:30)
DX: M53.3 Sacrococcygeal disorders, not elsewhere classified (principal)
CPT/HCPCS: 76000-TC-FY; J1100

== ENCOUNTER 2024-02-23 04:39 | Day surgery (SDC) | payer OTHER ==
[2024-02-22 13:44] VITALS: BMI 22.4
[2024-02-23] MEDS ORDERED: BUPIVACAINE HCL/PF 0.75% 10 ML VIAL ONE (07:28)
[2024-02-23] MEDS ORDERED: LIDOCAINE HCL/PF 2% SDV 5ML VIAL ONE (07:28)
[2024-02-23] MEDS ORDERED: LIDOCAINE HCL/PF 1% SDV 5ML VIAL ONE (07:29)
[2024-02-23] MEDS ORDERED: DEXAMETHASONE SOD PHOSPHATE 10 MG/1 ML VIAL ONE (07:29)
[2024-02-23 07:30] VITALS: TEMP 97.7
[2024-02-23] MEDS: LIDOCAINE 1% P/F 10 MG/ML VIAL INF ONE (08:40)
[2024-02-23] MEDS: LIDOCAINE HCL/PF 2% SDV 5ML VIAL INF ONE (08:56)
[2024-02-23] MEDS: BUPIVACAINE HCL/PF 0.75% 10 ML VIAL NR ONE (08:56)
[2024-02-23] MEDS: DEXAMETHASONE SOD PHOSPHATE 10 MG/1 ML VIAL IVPUSH ONE (08:56)
[2024-02-23 09:23] VITALS: BP 127/69; PULSE 68; RESP 15
== END 2024-02-23 09:46 | disposition home or self-care (01) ==
LOC: JASU-SURG 04:39
PROVIDERS: ATTEND Pain Medicine Pain Medicine
PROC: 015B3ZZ Destruction of Lumbar Nerve, Percutaneous Approach (ICD-10-PCS; principal; 2024-02-23 08:39)
DX: M47.816 Spondylosis without myelopathy or radiculopathy, lumbar region (principal)
CPT/HCPCS: 76000-TC-FY; J1100